=== PATIENT | female | born 1985 | race Caucasian/White ===

== ENCOUNTER 2016-07-03 16:52 | Emergency (ER) | payer SELFPAY ==
--- NOTE | 2016-07-03 18:19 | ERNOTE ---
<Gunner Mclaughlin - Last Filed: 07/03/16 19:43> ER Female HPI Date of Service: 07/03/16 Stated Complaint: ABNORMAL VAGINAL BLEEDING Time Seen by Provider: 07/03/16 18:16 Source: patient Exam Limitations: no limitations Immunizations: IMMUNIZATION HX Immunizations Up to Date Yes History of Influenza Vaccine No Hx Pneumococcal Vaccination No Allergies/Adverse Reactions: Allergies acetaminophen [From Vicodin] Allergy (Severe, Verified 07/03/16 17:22) Anaphylaxis hydrocodone [From Vicodin] Allergy (Severe, Verified 07/03/16 17:22) Anaphylaxis Penicillins Adverse Reaction (Intermediate, Verified 07/03/16 17:22) Hives Home Medications: HOME MEDICATIONS Misoprostol [Cytotec] 300 mcg PO Q3H #9 tablet 07/03/16 [Last Taken Unknown] - History of Present Illness Narrative: PT STATES SHE HAD MISCARRIAGE 3 WEEKS AGO , BLEEDING WAS SUBSIDED AND TODAY STARTED VAGINAL BLEEDING AGAIN WITH CRAMPS. STATES SHE NEVER HAS PERIODS. SHE IS FROM [place], HERE VISITING A BOY FRIEND. SHE STATES HER LMP WAS IN LATE MAR. AND SHE WENT TO AN OB DR AT [facility] IN [place] SOME TIME IN MID MAY AND HAD BLOOD WORK AND U.S. SHE HAS NO IDEA WHAT BLOOD WORK SHOWED AND SAYS US SHOWED " AND OVARIAN CYST" SHE DOES NOT KNOW EST. G.A. SHE SAYS SHE THEN PASSED ALOT OF CLOTS ABOUT A WEEK LATER AND SHE THOUGH SHE HAD A MISCARRIAGE THOUGH ADMITS SHE HAS NO IDEA OF WHAT PRODUCTS OF CONCEPTION LOOK LIKE AND SHE DID NOT F/U WITH A DOCTOR AT THAT TIME. THE BLEEDING SUBSIDED UNTIL TODAY WHEN SHE HAD HEAVY VAGINAL BLEEDING AGAIN WITH SOME CRAMPS. SHE DENIES MEDS. SHE WAS IN THE SERVICE AND STATES HER BLOOD TYPE IS O+. NKA. SHE IS WITH [address] Review of Systems - Review of Systems Constitutional: Present: See HPI EYE: Present: no symptoms reported ENT: Present: no symptoms reported Respiratory: Present: no symptoms reported Cardiology: Present: no symptoms reported Gastrointestinal/Abdominal: Present: no symptoms reported Genitourinary: Present: other - NEW VAGINAL BLEEDING Musculoskeletal: Present: no symptoms reported Skin: Present: no symptoms reported Neurological: Present: no symptoms reported Endocrine: Present: no symptoms reported Hematologic/Lymphatic: Present: no symptoms reported Psych: Present: no symptoms reported All Other Systems: All systems neg except as marked - Patient's Past Medical History Patient History - Medical: No pertinent hx Patient History - Cardiac/Respiratory: No pertinent hx Patient History - Cancer: No Hx of Cancer Patient History - Surgical Procedures: T & A, Other, Orthopedic - JAW AND LANKLE Patient History - Other: None LMP (females 10-50): 3 months - Social History Living Situations: alone Abuse History: No History of abuse Psych History: No pertinent hx Smoking Status: Current every day smoker Have you smoked in the past 12 months: Yes Do you dip or chew tobacco: No Alcohol Use: occasionally Drug Use: none - Immunizations Immunizations Up to Date: Yes Hx Pneumococcal Vaccination: No History of Influenza Vaccine: No Physical Exam - Physical Exam General Appearance: Present: wd/wn, alert, no apparent distress Respiratory: Present: no respiratory distress, normal breath sounds, no accessory muscle use, chest nontender, lungs clear Cardiovascular/Chest: Present: regular rate, rhythm, no murmur Gastrointestinal/Abdominal: Present: normal bowel sounds, nondistended, soft, no organomegaly, tenderness - MILD SUPRAPUBIC TENDERNESS WITH MINIMAL GURDING AND NO REBOUND. Back Exam: Present: normal inspection ED Progress - Results and Orders Patient's Lab Results:: I have reviewed the patient's lab results. Results and Orders: CBC = NL . QUANT = VERY LOW 405. RH CONFIRMED TO BE +. - Vital Signs Vital Signs: Vital Signs 07/03/16 17:14 Temperature 36.3 C L Pulse Rate 85 Respiratory 16 Rate Blood Pressure 133/73 O2 Sat by Pulse 100 Oximetry - Progress/Reassessment Chief Complaint: Genitourinary Problem - Transfer of Care Physician Sign Out: Gunner Mclaughlin Receiving Physician: Dary Aguilera Pending Results: Labs Expected Disposition: Discharge Departure Clinical Impression: Incomplete miscarriage - Departure Disposition: Home self-care Condition: Good Instructions: Incomplete Miscarriage Additional Instructions: PLease take 3 doses of cytotec until you pass tissue and bleeding slows down again. 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 Prescriptions: Misoprostol [Cytotec] 300 mcg PO Q3H #9 tablet <Dary Aguilera - Last Filed: 07/03/16 20:40> ER Female HPI Immunizations: IMMUNIZATION HX Immunizations Up to Date Yes History of Influenza Vaccine No Hx Pneumococcal Vaccination No - History of Present Illness Narrative: Took over care from Dr Mclaughlin per pt. request. To add to hx Pt. states that bleeding was heavy and included closed and soaked through a pad her clothes and bedding this morning. Pt. also states that her bleeding is light at this time and her pain is LLQ and suprapubic. Review of Systems - Review of Systems Gastrointestinal/Abdominal: Present: abdominal pain - LLQ. Absent: no symptoms reported Genitourinary: Present: other Physical Exam - Physical Exam Eye Exam: Normal inspection: bilateral, PERRL: bilateral, EOMI: bilateral Ears, Nose, Throat: Present: normal ENT inspection, normal pharynx Neck: Present: normal inspection, nontender. Absent: lymphadenopathy (R), lymphadenopathy (L) Cardiovascular/Chest: Present: normal peripheral pulses Gastrointestinal/Abdominal: Present: normal bowel sounds, nondistended, soft, no organomegaly, tenderness - MILD SUPRAPUBIC TENDERNESS WITH MINIMAL GURDING AND NO REBOUND. LLQ Back Exam: Present: normal inspection, normal range of motion, no CVA tenderness , no vertebral tenderness Extremity Exam: Present: normal inspection, non-tender, normal range of motion, no edema Neurological Exam: Present: alert, oriented, normal mood/affect, no motor/ sensory deficits, director of outreach II-XII nml as tested, normal cerebellar test Skin Exam: Present: normal color, warm/dry. Absent: pallor, skin rash ED Progress - Date and Time Seen: Date and Time: 07/03/16 20:[address] Altman and we will start pt. on Cytotec for 3 doses and have her follow up with OBGYN in 1-2 days. - Results and Orders Patient's Lab Results:: I have reviewed the patient's lab results. - Vital Signs Patient's Vital Signs:: I have reviewed the patient's vital signs. Vital Signs: Vital Signs 07/03/16 07/03/16 17:14 19:09 Temperature 36.3 C L Pulse Rate 85 84 Respiratory 16 18 Rate Blood Pressure 133/73 112/71 O2 Sat by Pulse 100 98 Oximetry - CT/Ultrasound CT/Ultrasound Narrative: US consistant with retained products of conception - Progress/Reassessment Progress:: Improved
[2016-07-03 18:31] LABS: Hematocrit 33.2 % (37.0-47.0); Hemoglobin 11.3 gm/dL (12.5-16.0); Mean Cell Volume 83.6 fl (78-100); Mean Corpuscular Hemoglobin 28.5 pg (27-31); Mean Platelet Volume 9.6 fl (6.0-9.5); Neutrophil # 6.7 K/mm3 (1.3-6.0); Neutrophil % 66.7 % (42-75.0); Platelet Count 312 K/mm3 (150-450); Red Blood Count 3.97 M/mm3 (4.2-5.4); Red Cell Distribution Width 13.5 % (11.5-14.0); White Blood Count 10.1 K/mm3 (4.0-10.5)
--- OUTSIDE RECORDS SUMMARY | 2016-07-03 18:58 | XMS REPORT | Continuity of Care Document ---
:1985 Author Organization [facility] ([facility]) Address [address] [place] [address] Phone [phone] Care Team Providers Name Role Phone Provider, No-Primary Care Primary Care Provider Unavailable Source Comments This disclosure is being made pursuant to the Care Everywhere program, applicable federal and state laws, and may not contain all informaitonavailable regarding this patient.[facility] ([facility]) Active Allergies and Adverse Reactions Allergen Noted Date Severity Reactions Comments Grasses 01/25/2012 Pruritus,Rhinorrhea environmental allergies Hydrocodone-Acetamino 01/25/2012 Respiratory phen Distress,Urticaria (Hives) Penicillin V 01/25/2012 Urticaria (Hives) Potassium Current Medications Prescription Sig. Disp. Refills Start Date End Date Status ibuprofen (ADVIL) Take 200 mg by mouth Active 200 mg tablet every 6 hours as needed. etonogestrel Inject 1 Implant Active (IMPLANON) 68 mg under the skin subdermal implant continuous. levothyroxine 100 Take 100 mcg by Active mcg tablet mouth every morning before breakfast. LORazepam 0.5 mg Take 1 mg by mouth Active tablet every 4 hours as needed. chlorhexidine 0.12 % Rinse with 10 ML for 473 mL 0 11/15/2015 Active oral rinse 30 seconds twice daily for 10 days. Swish and spit out excess. Nothing by mouth for 30 minutes. ibuprofen 20 mg/mL Take 40 mL (800 mg 473 mL 2 11/15/2015 Active suspension total) by mouth every 6 hours as needed for pain. DO NOT EXCEED 3,200 MG IBUPROFEN PER DAY FROM ALL SOURCES albuterol 90 Use 2 Puffs by Active mcg/Actuation inhalation every 6 inhaler hours as needed. acetaminophen 160 Take 20.3 mL (650 mg 473 mL 1 11/16/2015 Active mg/5 mL liquid total) by mouth every 6 hours as needed. acetaminophen-codein Take 1 tablet by 30 tablet 0 11/23/2015 Active e 300-30 mg per mouth every 4 hours tablet as needed for Pain. DO NOT EXCEED 3,000 MG ACETAMINOPHEN PER DAY FROM ALL SOURCES fluconazole 150 mg Take 1 tablet (150 1 tablet 0 11/23/2015 Active tablet mg total) by mouth once. 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 Pulse 76 02/22/2016 11:25 AM TELEMETRY TECHNICIAN Temperature 36.7 C (98.1 F) 02/22/2016 11:25 AM TELEMETRY TECHNICIAN Respiratory Rate 18 11/16/2015 7:30 AM CDT Height 1.727 m (5' 7.99") 11/15/2015 12:48 PM CDT Weight 114 kg (251 lb 5.2 oz) 11/15/2015 12:48 PM CDT Body Mass Index 38.22 11/15/2015 12:48 PM CDT Oxygen Saturation 93% 11/16/2015 4:30 AM CDT Plan of Care Health Maintenance Due Date Last Done Comments Hepatitis B Vaccine (1 of 3 - Primary Series) 1985 Tdap Vaccine 1997 Cervical Cancer Screening 2004 Lipid Disorder Screening 2004 MMR Vaccine 2004 Td Vaccine 2004 Varicella Vaccine (1 of 2 - Adult - No Evidence of 2004 Immunity) Pneumococcal Vaccine (1 of 1 - PPSV23) 2005 Influenza Vaccine: Seasonal (#1) 09/19/2015 Results from Last 3 Months Not on file
--- OUTSIDE RECORDS SUMMARY | 2016-07-03 18:58 | XMS REPORT | Continuity of Care Document ---
:1985 Author Organization [facility] Address Unavailable [place], [place] [address] Care Team Providers Name Role Phone Claire Mathur Primary Care Provider [phone] Source Comments This disclosure is being made pursuant to the [employer] program and maynot contain all information available regarding this patient.[facility] Active Allergies and Adverse Reactions Allergen Noted Date Severity Reactions Comments Hydrocodone-Acetaminophen 06/11/2016 High Respiratory Distress,Hives Penicillin V Potassium 06/11/2016 High Hives Current Medications Be aware that medications may not be up to date as of this document. Alwaysverify current medications with the patient. No known medications Active Problems Patient Care Coordination Note - boyfriend Agustin Daughter from previous relationship Hx hypothyroid- no meds currently. TFT's drawn at [facility] BMI=38 Problem Noted Date Hypothyroidism 06/11/2016 BMI 37.0-37.9, adult 06/11/2016 Currently Estimated Date of Delivery Comments Yes 01/27/2017 Based on Ultrasound Most Recent Encounters Date Type Specialty Providers Description 06/11/2016 Initial Obstetrics and Aislinn Mirza, [place]: 7w1d Gynecology STONE RIGGER 06/06/2016 Orders Only Obstetrics and Manderscheid, Gynecology Kenyatta A, RN examination or test, positive result (Primary Dx) 06/04/2016 Telephone Obstetrics and Hortencia Hernandez, Pelvic Pain Gynecology RN 04/24/2016 Hospital Encounter Pathology Claire Mathur, DO Social History Tobacco Use Types Packs/Day Years Used Date Current Every Day Smoker 0.5 13 Smokeless Tobacco: Never Used Alcohol Use Drinks/Week oz/Week Comments No Last Filed Vital Signs Vital Sign Reading Time Taken Blood Pressure 120/74 06/11/2016 1:48 PM CDT Pulse 82 06/11/2016 1:48 PM CDT Temperature 37.2 C (99 F) 06/11/2016 1:48 PM CDT Respiratory Rate 16 06/11/2016 1:48 PM CDT Height 1.727 m (5' 8") 06/11/2016 1:48 PM CDT Weight 112.946 kg (249 lb) 06/11/2016 1:48 PM CDT Body Mass Index 37.87 06/11/2016 1:48 PM CDT Oxygen Saturation - - Plan of Care Date Type Specialty Providers Description 07/09/2016 Appointment Obstetrics and Gynecology Roma Rueda MD [address] [place] [address] [phone] (Fax) Health Maintenance Due Date Last Done Comments Pneumococcal Medium Risk 19-64 yo (1 of 1 - PPSV23) 2005 Tetanus/Pertussis (1 - Tdap) 2005 Influenza Immunization (#1) 2015 Pap Smear 06/12/2019 06/11/2016 Results from Last 3 Months Type and screen (06/11/2016 2:33 PM) Component Value Range ABO/Rh O POSITIVE Antibody Screen NEGATIVEComment:PERFORMED AT [facility], [address] [place] [address] Hemoglobin A1c (06/11/2016 2:33 PM) Component Value Range Hemoglobin A1C 5.2Comment: 0-5.7 % ---- 5.7-6.4% Increased risk of diabetes. ---- Greater than 6.4% Diagnostic of diabetes. ---- Less than 7% Meets treatment goal of ADA. ---- Note change in reference range based on ADA guidelines. Estimated Avg Glucose 103Comment:The "Estimated Average Glucose" is an mg/dL estimate of the patient's glucose level over the last 60 days, based on the HgbA1c value. CBC and differential (06/11/2016 2:33 PM) Component Value Range WBC 12.16(H) 4.00-11.00 th/mm3 RBC 4.54 4.20-5.20 mill/mm3 Hemoglobin 13.4 12.0-16.0 g/dL Hematocrit 38.4 37.0-47.0 % MCV 84.6 81.0-98.0 fL MCH 29.5 27.0-34.0 pg MCHC 34.9 31.5-36.0 g/dL Platelets 304 150-450 th/mm3 RDW-SD 42.3 36.4-46.3 fL RDW 13.8 9.0-14.5 % MPV 11.1 8.7-12.6 fL NRBC Absolute 0.00 0.0 th/mm3 NRBC % 0.0 0.0 % Neuts % 77.7 % Lymphs % 14.7 % Monos % 4.9 % Eosinophils % 2.1 % Basos % 0.2 % Neuts # 9.43(H) 1.50-8.00 th/mm3 Lymphs # 1.79 1.20-4.00 th/mm3 Monocytes(Absolute) 0.60 0.00-1.00 th/mm3 Eosinophils Absolute Count 0.26 0.00-0.50 th/mm3 Basophils Absolute 0.03 0.00-0.10 th/mm3 Immature Gran % 0.4 0.0-0.6 % Immature Granulocytes 0.05Comment:PERFORMED AT [facility] 0.0-0.09 th/mm3 [place] [address] Syphilis Ab IgG (06/11/2016 2:33 PM) Component Value Range Syphilis Ab IgG NONREACTIVEComment:[place] [address] Rubella antibody, IgG (06/11/2016 2:33 PM) Component Value Range Rubella IgG Screen POSComment: Positive: Vaccinated or prior exposure to the [place] [address] HIV 4th Gen Screen (06/11/2016 2:33 PM) Component Value Range HIV 4th Gen Screen NONREACTIVEComment: This analysis was performed using the HIV 4th generation Antigen/Antibody assay on the [employer] Super[employer] [place] [address] Hepatitis B surface antigen (06/11/2016 2:33 PM) Component Value Range Hep B Surface Ag Interp NONREACTIVEComment:[place] [address] TSH (06/11/2016 2:33 PM) Component Value Range TSH 1.710Comment:PERFORMED AT [facility] 0.270-4.200 mcIU/[place] [address] T4, free (06/11/2016 2:33 PM) Component Value Range Free T4 1.2Comment:PERFORMED AT [facility], [address] 0.9-1.7 ng/[place] [address] Urine culture (06/11/2016 2:02 PM) Component Value Range Specimen Description URINE Specimen Description PERFORMED AT [facility], [address] [place] [address] Special Requests 1UCT URINE Special Requests PERFORMED AT [facility], [facility] [address] Culture Results NO GROWTH 2 DAYS Culture Results PERFORMED AT [facility], [address] [place] [address] Report Status 06/13/2016 FINAL Specimen Urine - Cln Catch GC/Chlamydia by ALEX (06/11/2016 2:02 PM) Component Value Range Chlamydia by ALEX NEG NEG N. gonorrhoeae by ALEX NEGComment:PERFORMED AT [facility], NEG [address] [place] [address] Specimen Vaginal Liquid Based Pap Smear (06/11/2016) Narrative CASE: [id number] PATIENT: LAUREN CHAPMAN GYNECOLOGIC CYTOLOGY REPORT ACCESSION NUMBER: [id number] Date Collected: 06/11/2016 Date Received: 06/12/2016 SPECIMEN: Cervical; With HPV Reflex; Automated & Manually Screened; Liquid based prep, [employer] CLINICAL INFORMATION: SPECIMEN ADEQUACY: Satisfactory for evaluation; no transformation zone component present. GENERAL DIAGNOSTIC CATEGORY: Negative for intraepithelial lesion or malignancy. Initial evaluation performed by Mariah Olivarez CT(ASCP) Electronically signed 06/13/2016 12:58:29PM Final Diagnosis performed by Tita Enriquez CT(ASCP) Electronically signed 06/13/2016 2:18:43PM Procedure Note Luke, Lab In [facility] - SatJun 13, 2016 2:29 PM CDT CASE: [id number] PATIENT: LAUREN CHAPMAN GYNECOLOGIC CYTOLOGY REPORT ACCESSION NUMBER: [id number] Date Collected: 06/11/2016 Date Received: 06/12/2016 SPECIMEN: Cervical; With HPV Reflex; Automated & Manually Screened; Liquid based prep, [employer] CLINICAL INFORMATION: SPECIMEN ADEQUACY: Satisfactory for evaluation; no transformation zone component present. GENERAL DIAGNOSTIC CATEGORY: Negative for intraepithelial lesion or malignancy. Initial evaluation performed by Mariah Olivarez CT(ASCP) Electronically signed 06/13/2016 12:58:29PM Final Diagnosis performed by Tita Enriquez CT(ASC) Electronically signed 06/13/2016 2:18:43PM US OB LESS THAN 14 WKS SINGLE FETUS TRANSABDOMINAL (06/11/2016)Culture Genital/ Gram (04/24/2016 4:55 PM) Component Value Range Specimen Description VAGINAL Specimen Description PERFORMED AT [facility], [address] [address], [place] [address] Special Requests ESWAB Special Requests PERFORMED AT [facility], [address] [facility], [place] [address] Gram Stain NO PMNs SEEN Gram Stain FEW SQUAMOUS EPITHELIAL CELLS Gram Stain MANY GRAM POSITIVE RODS RESEMBLING LACTOBACILLUS Gram Stain 0 N SCORE=NORMAL VAGINAL LINDA Culture Results LIGHT GROWTH OF YEAST Culture Results HEAVY GROWTH OF NORMAL VAGINAL LINDA Culture Results NO NEISSERIA GONORRHOEAE ISOLATED Culture Results PERFORMED AT [facility], [address] [place] [address] Report Status 04/28/2016 FINAL Specimen VAGINAL
[2016-07-03] MEDS ORDERED: oxyCODONE HCL/ACETAMINOPHEN 1 TAB TABLET PO ONE (20:46)
[2016-07-03] MEDS ORDERED: oxyCODONE HCL/ACETAMINOPHEN 1 TAB TABLET ONE (20:47)
[2016-07-03] MEDS ORDERED: MISOPROSTOL 100 MCG TABLET PO SCH (21:00)
[2016-07-03 21:20] VITALS: BP 112/68
== END 2016-07-03 21:00 | disposition home or self-care (01) ==
LOC: ER 16:52
DX: O03.4 Incomplete spontaneous abortion without complication (principal); Z72.0 Tobacco use